=== PATIENT | male | born 1960 | race Caucasian/White ===

== ENCOUNTER 2017-05-02 11:29 | Emergency (ER) | payer OTHER ==
[~2017-05-02] VITALS: Ht 177.8 cm; Wt 111.0 kg
[2017-05-02 11:35] VITALS: BP 126/78; PULSE 86; RESP 16; TEMP 97.8; O2SAT 99
[2017-05-02] MEDS ORDERED: BENA10TA PO (11:45)
[2017-05-02] MEDS ORDERED: SERO25TA PO (11:45)
[2017-05-02] MEDS ORDERED: ATOR10TA15 PO (11:45)
[2017-05-02] MEDS ORDERED: TRAZ1TAB14 PO (11:45)
[2017-05-02] MEDS ORDERED: PROZ40CA PO (11:45)
--- NOTE | 2017-05-02 11:57 | PD ---
HPI Chief Complaint: Skin Problem Time Seen by Provider: 11:30 Travel History International Travel<30 days: No Contact w/Intl Traveler<30days: No Traveled to known affect area: No History of Present Illness HPI 56-year-old male here for evaluation of painful itchy scaling rash to both hands for 6 months. Patient reports the rash started as dry scaling skin that was pruritic. He reports the rash comes and goes and usually improves with hydrocortisone cream. He reports 2 days ago he developed blisters which opened and have become increasingly more painful and pruritic. He denies fever or chills. He has a follow-up appointment with dermatology on 05/11/17. He has normal sensation and full range of motion of all digits. PFSH Past Medical History Anxiety: Yes High Cholesterol: Yes Hypertension: Yes Social History Alcohol Use: No ([employer]) Tobacco Use: Yes Substance Use: No Allergies-Medications (Allergen,Severity, Reaction): Coded Allergies: No Known Allergies (Unverified , 05/02/17) Reported Meds & Prescriptions Reported Meds & Active Scripts Active Reported Trazodone (Trazodone HCl) 150 Mg Tablet 150 Mg PO HS Seroquel (Quetiapine Fumarate) 25 Mg Tab Unknown Dose PO DAILY Prozac (Fluoxetine HCl) 40 Mg Cap 40 Mg PO DAILY Atorvastatin (Atorvastatin Calcium) 10 Mg Tab Unknown Dose PO HS Benazepril (Benazepril HCl) 10 Mg Tab 10 Mg PO DAILY Review of Systems Except as stated in HPI: all other systems reviewed are Neg Physical Exam Narrative GENERAL: Well-nourished, well-developed patient. SKIN: Multiple erythematous scaling lesions to both hands and webs of fingers. There is areas of peeling dry skin at site of old blisters. No active drainage. No induration. These areas are consistent with eczema and mild secondary infection to open areas HEAD: Normocephalic. EYES: No scleral icterus. No injection or drainage. NECK: Supple, trachea midline. No JVD or lymphadenopathy. CARDIOVASCULAR: Regular rate and rhythm without murmurs, gallops, or rubs. RESPIRATORY: Breath sounds equal bilaterally. No accessory muscle use. GASTROINTESTINAL: Abdomen soft, non-tender, nondistended. MUSCULOSKELETAL: No cyanosis, or edema. Bilateral hands: Multiple erythematous scaling lesions to both hands and webs of fingers. There is areas of peeling dry skin at site of old blisters. No active drainage. No induration. Patient has full flexion and extension of all digits. Data Data Last Documented VS Vital Signs Date Time Temp Pulse Resp B/P (MAP) Pulse Ox O2 Delivery O2 Flow Rate FiO2 05/02/17 11:35 97.8 86 16 126/78 (94) 99 [facility] Medical Decision Making Medical Screen Exam Complete: Yes Emergency Medical Condition: Yes Differential Diagnosis Eczema, allergic contact dermatitis, wound infection, cellulitis, abscess Narrative Course 56-year-old male here for evaluation of a painful pruritic rash on both hands present for the last 6 months. Patient reports the last several days areas have become increasingly more painful prompting his visit today. The areas usually treated with topical hydrocortisone cream and improves. He has a follow -up appointment with dermatology. He works at a mental health facility infrequently wears gloves which he attributes rash to. On exam he has what is consistent with eczema to both hands and webs of fingers with possible mild secondary infection to several open areas. no overt cellulitis of the hands. The patient will be given a shot of Decadron instructed to take OTC Benadryl and put on a week's with Keflex. Return precautions discussed. Patient verbalizes understanding and agrees to plan Diagnosis Primary Impression: Eczema of hand Referrals: Cargo Supervisor Additional Instructions: Take [id number] Benadryl as needed for itching. Use Eucerin cream/lotion to help with right skin. you may use 1% hydrocortisone cream to areas. Take the antibiotics as prescribed. Follow-up with the collection analyst at her scheduled appointment Scripts Cephalexin (Keflex) 500 Mg Cap 500 MG PO Q6H for Infection for 7 Days, #28 CAP 0 Refills Prov: Melissa Zambrano 05/02/17 Disposition: 01 DISCHARGE HOME Condition: Stable Melissa Zambrano May 02, 2017 11:57
[2017-05-02] MEDS ORDERED: CEPH-460 PO (12:04)
[2017-05-02] MEDS ORDERED: DEXAMETHASONE SOD PHOS 4 MG/ML VIAL IM ONE (12:15)
== END 2017-05-02 12:28 | disposition home or self-care (01) ==
LOC: PHEFT 11:29
DX: L30.9 Dermatitis, unspecified (principal); E78.00 Pure hypercholesterolemia, unspecified; I10 Essential (primary) hypertension; Z72.0 Tobacco use; Z79.899 Other long term (current) drug therapy
CPT/HCPCS: 96372; 99284; J1100